=== PATIENT | male | born 2005 | race Caucasian/White ===

== ENCOUNTER 2024-11-14 20:56 | Emergency (ER) | payer BC, SELFPAY ==
[2024-11-14 21:14] VITALS: BP 157/81; PULSE 90; RESP 16; TEMP 37; O2SAT 100
--- NOTE | 2024-11-14 22:17 | ED.ANIMALBIT ---
HPI - Animal Bite General Chief Complaint: Animal Bite Stated Complaint: dog bite Time Seen by Provider: 11/14/24 21:26 Source: patient Mode of arrival: ambulatory Limitations: no limitations History of Present Illness HPI narrative: Patient is a 19-year-old male who presents the ED with report of a dog bite to his left-sided face. Patient reports he was bit by his home dog. Sustained laceration just in front of his left ear, left-sided facial cheek. Dog is up-to-date on its vaccines. Tetanus unknown. Denies any other injuries. Denies numbness, jaw pain or difficulty swallowing. Related Data Allergies Allergy/AdvReac Type Severity Reaction Status Date / Time No Known Allergies Allergy Verified 11/14/24 21:21 Review of Systems Review of Systems: All systems reviewed & are unremarkable except as noted in HPI. All systems reviewed & are unremarkable except as noted in HPI and below Exam Narrative: GENERAL: Well appearing, well-nourished, non-toxic, in no acute distress. HEAD: Normocephalic, atraumatic. ENT: 2cm linear vertical laceration of L lateral facial cheek just medial to L ear. Fairly superficial, no active bleeding. 0.25cm smaller superficial laceration just above vertical laceration. Small abrasion to L lower facial cheek in contreras region, no bleeding or gaping nature. No trismus or malocclusion RESPIRATORY: Airway patent, respirations nonlabored. CARDIOVASCULAR: Regular rate and rhythm MUSCULOSKELETAL: Moves all extremities. No gross deformities. SKIN: Warm, dry, normal color. NEURO: A&O X3. Speech clear. PSYCHIATRIC: Appropriate mood and affect. Normal interaction. Course Vital Signs Vital signs: Vital Signs Temperature 98.6 F 11/14/24 21:14 Pulse Rate 90 11/14/24 21:14 Respiratory Rate 16 11/14/24 21:14 Blood Pressure 157/81 H 11/14/24 21:14 Pulse Oximetry 100 11/14/24 21:14 Oxygen Delivery Room Air 11/14/24 21:14 Temperature 98.1 F 11/14/24 23:25 Pulse Rate 68 11/14/24 23:25 Respiratory Rate 18 11/14/24 23:25 Blood Pressure 127/68 11/14/24 23:25 Pulse Oximetry 99 11/14/24 23:25 Oxygen Delivery Room Air 11/14/24 21:14 Procedures Laceration Laceration 1: Date: 11/14/24 Time: 23:10 Site: face Side (If applicable): left Size (cm): 2 Description: linear Depth: simple, single layer Local Anesthetic: lidocaine 1% Amount of anesthesia used (mL): 5 Pre-repair: wound explored and irrigated ====== Skin Level ====== Skin layer closed with: nylon Size (cm): 5-0 Number of sutures: 5 Technique: simple, interrupted ====== Subcutaneous Layer ====== ====== Muscle Layer ====== ====== Tendon Layer ====== MDM - Animal Bite MDM Narrative Medical decision making narrative: Patient presented to ED status post dog bite to left-sided face. 2 cm laceration just in front of left ear. Thoroughly irrigated and repaired with sutures. Two other small abrasions were irrigated and did not require repair. Tetanus updated in the ED. Patient started on Augmentin. Given wound care instructions and strict return precautions. D/C in stable condition Medical Records Attestation: I reviewed the patient's medical records. Discharge Plan Discharge Clinical Impression: Laceration of face Qualifiers: Encounter type: initial encounter Qualified Code(s): S01.81XA - Laceration without foreign body of other part of head, initial encounter Dog bite Qualifiers: Encounter type: initial encounter Qualified Code(s): W54.0XXA - Bitten by dog, initial encounter Patient Disposition: Home Condition: Stable Instructions: Antibiotic Form, Animal Bite (ED), Care For Your Stitches (ED), Laceration (ED) Additional Instructions: Take antibiotics as prescribed. Return to the ED or visit an urgent care or your PCP for follow-up and wound check/suture removal in around 7 days. Keep the wound as dry as possible for 24 hours. After 24 hours, you may wash with simple soap and water, but do not scrub. Return to the ED if you experience uncontrolled bleeding, fever, chills, pus-like drainage, or redness/swelling/warmth surrounding the wound, as these could be signs of an infection. Patient Language: Citizen Of [place] Prescriptions: New amoxicillin-pot clavulanate 875-125 mg tablet 1 tablet PO Q12H 7 Days Qty: 14 0RF Follow-up/Referrals: Harry,MD Yanira [Primary Care Provider, Pediatrics] Stand Alone Forms: Work/School Release IP Time of Disposition: 23:18
[2024-11-14] MEDS: TETANUS,DIPHTHERIA,AC PERTUSSIS ADULT (0.5 ML) BOOSTRIX IM (22:23)
[2024-11-14 23:25] VITALS: BP 127/68; PULSE 68; RESP 18; TEMP 36.7; O2SAT 99
== END 2024-11-14 23:26 | disposition home or self-care (01) ==
PROVIDERS: Emergency Provider Physician Assistant; PCP Pediatrics
DX: S01.85XA Open bite of other part of head, initial encounter (principal); Z23 Encounter for immunization; W54.0XXA Bitten by dog, initial encounter
CPT/HCPCS: 12011; 90471; 90715; 99283; A9270; J2003